=== PATIENT | male | born 1975 | race Caucasian/White ===

== ENCOUNTER 2020-04-02 16:26 | Outpatient (REF) | payer BC, SELFPAY | END 2020-04-02 16:27 | disposition home or self-care (01) | LOC: HO.LNP 16:26 | PROVIDERS: Visit Provider Internal Medicine | DX: Z20.822 Contact with and (suspected) exposure to COVID-19 (principal) | CPT/HCPCS: U0003 ==

== ENCOUNTER 2020-04-09 10:15 | Outpatient (REF) | payer BC, SELFPAY ==
[2020-04-09 11:00] LABS: Influenza A PCR NEGATIVE (Negative); Influenza B PCR NEGATIVE (Negative); Resp Syncy Virus RNA Qual PCR NEGATIVE (Negative); SARS COV2 PCR INHOUSE NEGATIVE (Negative)
== END 2020-04-09 10:16 | disposition home or self-care (01) ==
LOC: HO.LNP 10:15
PROVIDERS: Visit Provider Internal Medicine
DX: Z20.822 Contact with and (suspected) exposure to COVID-19 (principal)
CPT/HCPCS: 0241U

== ENCOUNTER 2020-05-11 14:54 | Outpatient (REF) | payer BC, SELFPAY ==
[2020-05-11 15:40] LABS: Influenza A PCR NEGATIVE (Negative); Influenza B PCR NEGATIVE (Negative); Resp Syncy Virus RNA Qual PCR NEGATIVE (Negative); SARS COV2 PCR INHOUSE NEGATIVE (Negative)
== END 2020-05-11 14:55 | disposition home or self-care (01) ==
LOC: HO.LNP 14:54
PROVIDERS: Visit Provider Internal Medicine
DX: Z86.16 Personal history of COVID-19 (principal)
CPT/HCPCS: 0241U

== ENCOUNTER 2021-03-25 12:14 | Outpatient (REF) | payer BC, SELFPAY ==
[2021-03-25 13:23] LABS: Influenza A PCR NEGATIVE (Negative); Influenza B PCR NEGATIVE (Negative); Resp Syncy Virus RNA Qual PCR NEGATIVE (Negative); SARS COV2 PCR INHOUSE POSITIVE (Negative)
== END 2021-03-25 12:15 | disposition home or self-care (01) ==
LOC: HO.LNP 12:14
PROVIDERS: Visit Provider Internal Medicine
DX: Z20.822 Contact with and (suspected) exposure to COVID-19 (principal); R05.9 Cough, unspecified; J06.9 Acute upper respiratory infection, unspecified
CPT/HCPCS: 0241U

== ENCOUNTER 2021-04-08 13:23 | Outpatient (REF) | payer BC, SELFPAY ==
[2021-04-08 15:11] LABS: COVID-19 Test Negative (Negative)
== END 2021-04-08 13:24 | disposition home or self-care (01) ==
LOC: HO.LAB 13:23
PROVIDERS: Visit Provider Internal Medicine
DX: Z20.822 Contact with and (suspected) exposure to COVID-19 (principal)
CPT/HCPCS: 87635; C9803

== ENCOUNTER 2021-11-18 07:53 | Outpatient (REF) | payer BC, SELFPAY ==
[2021-11-18 10:29] LABS: MANUAL DIFF FLAG NO
[2021-11-18 10:32] LABS: Appearance Urine Clear; Color Urine Yellow; Glucose Urine UA Negative (Negative); Leukocyte Esterase Urine Negative (Negative); Nitrite Urine Negative (Negative); PH 7.5 (5.0-8.0); Urine Blood Negative (Negative); Urine Ketones Negative (Negative); Urine Protein Negative (Neg-Trace)
[2021-11-18 10:40] LABS: Basophils Absolute Auto 0.1 X10*3/uL (0.0-0.2); Basophils Percent Auto 0.8 % (0-2); Eosinophils Absolute Auto 0.3 X10*3/uL (0.0-0.4); Eosinophils Percent Auto 4.4 % (0-4); Hematocrit 46.5 % (42.0-52.0); Hemoglobin 15.3 g/dl (14.0-18.0); Imm Gran Abs Auto 0.01 X10*3/uL (0.00-0.03); Imm Gran Pct Auto 0.2 % (0.0-0.4); Lymphocytes Absolute Auto 2.6 X10*3/uL (1.2-4.9); Lymphocytes Percent Auto 39.5 % (20-40); Mean Corpuscular HGB Conc 32.9 g/dl (31.0-36.0); Mean Corpuscular Volume 88.1 fL (80.0-98.0); Mean Platelet Volume 12.9 fL (9.4-12.4); Monocytes Absolute Auto 0.6 X10*3/uL (0.1-1.2); Neutrophils Percent Auto 46.1 % (45-73); Platelet Count 192 X10*3/uL (160-400); Red Blood Count 5.28 X10*6/uL (4.60-5.80); Red Cell Distribution Width 13.5 % (11.0-16.0); White Blood Count 6.5 X10*3/uL (4.8-10.8)
[2021-11-18 10:48] LABS: Alanine Aminotransferase 53 U/L (0-40); Albumin Level 4.6 g/dL (3.5-5.0); Alkaline Phosphatase 105 U/L (39-117); Anion Gap 15 (12-20); Aspartate Amino Transferase 33 U/L (5-37); Bilirubin Total 0.7 mg/dL (0.0-1.0); Blood Urea Nitrogen 14 mg/dL (9-16); Calcium 9.5 mg/dL (8.4-10.2); Carbon Dioxide 26 mmol/L (22-29); Chloride 105 mmol/L (96-108); Cholesterol 253 mg/dL; Estimated Glomerular Filt Rate > 60; Glucose Fasting 97 mg/dL (60-99); HDL Cholesterol 46 mg/dL; LDL Cholesterol Calculated 174 mg/dl; Potassium 4.5 mmol/L (3.3-5.1); Sodium 141 mmol/L (135-145); Total Protein 7.2 g/dL (6.5-8.0); Triglycerides 165 mg/dL
== END 2021-11-18 07:54 | disposition home or self-care (01) ==
LOC: HO.10HDL 07:53
PROVIDERS: Visit Provider Internal Medicine
DX: Z00.00 Encounter for general adult medical examination without abnormal findings (principal)
CPT/HCPCS: 36415; 80053; 80061; 81003; 85025

== ENCOUNTER 2022-02-24 09:05 | Outpatient (REF) | payer BC, SELFPAY ==
[2022-02-24 11:06] LABS: Alanine Aminotransferase 81 U/L (0-40); Aspartate Amino Transferase 39 U/L (5-37); Cholesterol 144 mg/dL; HDL Cholesterol 39 mg/dL; LDL Cholesterol Calculated 89 mg/dl; Triglycerides 80 mg/dL
== END 2022-02-24 09:06 | disposition home or self-care (01) ==
LOC: HO.10HDL 09:05
PROVIDERS: Visit Provider Internal Medicine
DX: E78.00 Pure hypercholesterolemia, unspecified (principal)
CPT/HCPCS: 36415; 80061; 82550; 84450; 84460

== ENCOUNTER 2022-03-11 10:31 | Outpatient (REF) | payer BC, SELFPAY ==
[2022-03-11 15:00] LABS: Alanine Aminotransferase 51 U/L (0-40); Aspartate Amino Transferase 23 U/L (5-37)
== END 2022-03-11 10:32 | disposition home or self-care (01) ==
LOC: HO.10HDL 10:31
PROVIDERS: Visit Provider Internal Medicine
DX: E78.00 Pure hypercholesterolemia, unspecified (principal); R79.89 Other specified abnormal findings of blood chemistry
CPT/HCPCS: 36415; 82550; 84450; 84460

== ENCOUNTER 2023-05-28 07:29 | Outpatient (REF) | payer BC, SELFPAY ==
[2023-05-28 07:41] LABS: Basophils Absolute Auto 0.1 X10*3/uL (0.0-0.2); Basophils Percent Auto 0.8 % (0-2); Eosinophils Absolute Auto 0.2 X10*3/uL (0.0-0.4); Hematocrit 47.6 % (42.0-52.0); Hemoglobin 15.7 g/dl (14.0-18.0); Imm Gran Abs Auto 0.02 X10*3/uL (0.00-0.03); Imm Gran Pct Auto 0.3 % (0.0-0.4); Lymphocytes Absolute Auto 2.4 X10*3/uL (1.2-4.9); Lymphocytes Percent Auto 40.8 % (20-40); MANUAL DIFF FLAG NO; Mean Platelet Volume 12.2 fL (9.4-12.4); Monocytes Absolute Auto 0.6 X10*3/uL (0.1-1.2); Monocytes Percent Auto 9.2 % (2-11); Neutrophils Absolute Auto 2.7 x10*3/uL (2.0-8.3); Neutrophils Percent Auto 44.9 % (45-73); Platelet Count 189 X10*3/uL (160-400); Red Cell Distribution Width 13.4 % (11.0-16.0)
[2023-05-28 09:03] LABS: Alanine Aminotransferase 43 U/L (0-40); Albumin Level 4.6 g/dL (3.5-5.0); Alkaline Phosphatase 106 U/L (39-117); Anion Gap 12 (12-20); Aspartate Amino Transferase 24 U/L (5-37); Blood Urea Nitrogen 12 mg/dL (9-16); Calcium 9.5 mg/dL (8.4-10.2); Carbon Dioxide 27 mmol/L (22-29); Chloride 105 mmol/L (96-108); Cholesterol 189 mg/dL (<200); Estimated Glomerular Filt Rate > 60; Glucose Random 98 mg/dL (60-115); HDL Cholesterol 41 mg/dL (>40); LDL Cholesterol Calculated 130 mg/dL (<100); Sodium 140 mmol/L (135-145); Total Protein 7.5 g/dL (6.5-8.0); Triglycerides 91 mg/dL (<150)
== END 2023-05-28 07:30 | disposition home or self-care (01) ==
LOC: HO.10HDL 07:29
PROVIDERS: Visit Provider Internal Medicine
DX: R79.89 Other specified abnormal findings of blood chemistry (principal)
CPT/HCPCS: 36415; 80053; 80061; 85025

== ENCOUNTER 2023-07-28 08:33 | Outpatient (REF) | payer BC, SELFPAY ==
--- NOTE | ~2023-07-28 | XR_ITS ---
EXAMINATION: XR HAND, LEFT CLINICAL INFORMATION: Pain in unspecified hand COMPARISON: None available. TECHNIQUE: PA, lateral, and oblique views of the left hand. FINDINGS: The bones are intact. No fracture. Alignment is anatomic. Mild degenerative change of the DIP joint of the middle, ring and little finger. No erosions or soft tissue calcifications. XR/XR hand LT min 3V IMPRESSION: No acute bony abnormality. Mild degenerative change.
== END 2023-07-28 08:34 | disposition home or self-care (01) ==
LOC: HO.HOSX 08:33
PROVIDERS: Visit Provider Physician Assistant
DX: M79.642 Pain in left hand (principal); R20.0 Anesthesia of skin; R20.2 Paresthesia of skin
CPT/HCPCS: 73130

== ENCOUNTER 2023-07-28 10:05 | Outpatient (AMB) | payer BC, SELFPAY ==
--- NOTE | 2023-07-28 10:13 | A.OFFVIS_ITS ---
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 Patient reports tingling occurs on left middle finger and left thumb when extending arm laterally or anteriorly. Reports sx's began about 1.5 years, 5 on 0-10 pain scale. Denies known injuries. 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 Patient was referred to the office by Dr. Delfin Laguerre. Patient reports tingling in the left middle digit and left thumb when extending the upper extremity laterally or anteriorly. He reports symptoms beginning about 1.5 months ago. He reports his pain as a 5/10. He denies any known injury. [facility] Social History (Updated 07/28/23 @ 10:16 by KODI Newton) Alcohol intake: current Alcohol intake frequency: holidays/special occasions only Patient Tobacco Use Status: Never used Tobacco Current occupation: lt hand dominant Review of Systems Const All systems reviewed & are unremarkable except as noted in HPI and below Physical Exam Vital Signs: BMI result Body Mass Index 28.2 Const General: cooperative and no acute distress Orientation/consciousness: patient oriented x3 Resp Effort & Inspection: normal respiratory effort and able to speak in complete sentences Cardio Peripheral pulses: Peripheral pulses 2+ throughout Skin General skin exam: no rashes or lesions noted Neuro General: patient oriented x3 Extrem Other: Left shoulder: Normal to inspection. No ecchymosis, erythema, or edema. Full shoulder ROM in all planes. Negative cross-body reach. Negative empty can. Negative drop arm. Reports tingling in the middle digit and thumb with forward flexion and abduction to 90 degrees, however reports return to normal sensation past 90 degrees. Left hand: Normal to inspection. No ecchymosis, erythema, or edema. Able to perform full finger flexion, extension, abduction, adduction, finger cross, okay sign, and thumbs up without deficit. Able to make a closed fist. Capillary refill is brisk. Radial pulse intact. Assessment & Plan Assessment & Plan (1) Numbness and tingling in left hand: Code(s): R20.0 - Anesthesia of skin; R20.2 - Paresthesia of skin Category: Medical Plan Mr. Hidalgo is a 47-year-old male who presents in the office today for an evaluation of left hand tingling. Patient was referred to the office by Dr. Delfin Laguerre. Patient reports tingling in the left middle digit and left thumb when extending the upper extremity laterally or anteriorly. He reports symptoms beginning about 1.5 months ago. He reports his pain as a 5/10. He denies any known injury. Patient will be referred for an EMG to further evaluate the integrity of the left upper extremity nerves. He will contact the office once the EMG is obtained. In roughly 3-4 weeks he [place] the [place] for [place]. 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 I would like to try and get the EMG obtained prior to his departure. Therefore, a stat EMG order was placed today. Follow up will be after the EMG is obtained, or sooner if needed. Orders: Orders XR hand LT min 3V Today M79.643 - Pain in unspecified hand NE electromyogram (EMG) Today R20.0 - Anesthesia of skin, R20.2 - Paresthesia of skin Patient Instructions: Scribed by Candis Lopez, medical information officer, for Janny Duarte PA-C on 07/28/2023 at 10:17 am, EST. Coding Level of Care Code New Pt Level 4 (78453) Diagnoses Numbness and tingling in left hand R20.0; R20.2
[2023-07-28 10:18] VITALS: BMI 28.2
== END 2023-07-28 10:29 | disposition home or self-care (01) ==
PROVIDERS: PCP Internal Medicine; Visit Provider Physician Assistant
DX: R20.0 Anesthesia of skin (principal); R20.2 Paresthesia of skin
CPT/HCPCS: 99203

== ENCOUNTER 2023-08-07 08:36 | Outpatient (REF) | payer BC, SELFPAY ==
--- NOTE | 2023-08-07 08:39 | EMG_ITS ---
Chief complaint: Tingling/numbness on left 3rd digit but only when he stretches out left arm. Denies nighttime symptoms. Reason for referral: Evaluate for brachial plexopathy Referred by: Janny AUGUSTIN Procedure done: Left upper extremity NCS/EMG Precautions and/or limitations: None The limb temperature was monitored continuously and remained between 32-36 degrees C during the performance of the NCS. Nerve Conduction Studies Anti Sensory Summary Table ?Stim Site NR Onset (ms) Norm Onset (ms) Peak (ms) Norm Peak (ms) O-P Amp (?V) Norm O-P Amp Site1 Site2 Delta-0 (ms) Dist (cm) Alcon (m/s) Norm Alcon (m/s) Left Lat Ante Brach Cutan Anti Sensory (Lat Forearm) Lat Biceps ? 0.4 0.5 0.1 Lat Biceps Lat Forearm 0.4 0.0 Left Med Ante Brach Cutan Anti Sensory (Med Forearm) Elbow ? 0.4 0.5 2.1 Elbow Med Forearm 0.4 0.0 Left Median Anti Sensory (2nd Digit) Wrist ? 2.3 3.1 <3.6 50.7 >10 Wrist 2nd Digit 2.3 14.0 61 Left Radial Anti Sensory (Thumb) Forearm ? 1.8 2.4 <3.1 23.1 Forearm Thumb 1.8 0.0 Left Ulnar Anti Sensory (5th Digit) Wrist ? 2.4 3.1 <3.7 40.5 >15.0 Wrist 5th Digit 2.4 14.0 58 Motor Summary Table ?Stim Site NR Onset (ms) Norm Onset (ms) O-P Amp (mV) Norm O-P Amp iAmp (mV) Amp (1st) (%) Site1 Site2 Delta-0 (ms) Dist (cm) Alcon (m/s) Norm Alcon (m/s) Left Median Motor (Abd Poll Brev) Wrist ? 3.6 <3.9 12.6 >4.5 15.4 100.0 Elbow Wrist 3.9 21.0 54 >45 Elbow ? 7.5 12.3 14.7 97.6 Left Ulnar Motor (Abd Dig Minimi) Wrist ? 3.0 <3.0 7.8 >5 10.8 100.0 B Elbow Wrist 3.3 20.0 61 >45 B Elbow ? 6.3 8.2 11.6 105.1 A Elbow B Elbow 1.6 10.0 62 >45 A Elbow ? 7.9 7.6 11.1 97.4 EMG ?Side Muscle Nerve Root Ins Act Fibs Psw Amp Dur Poly Recrt Int Pat Comment Left 1stDorInt Ulnar C8-T1 Nml Nml Nml Nml Nml 0 Nml Complete Left FlexCarRad Median C6-7 Nml Nml Nml Nml Nml 0 Nml Complete Left Biceps Musculocut C5-6 Nml Nml Nml Nml Nml 0 Nml Complete Left Triceps Radial C6-7-8 Nml Nml Nml Nml Nml 0 Nml Complete Left Deltoid Axillary C5-6 Nml Nml Nml Nml Nml 0 Nml Complete Paraspinal EMG ?Side Muscle Nerve Root Ins Act Fibs Psw Comment Left Cervical Upper Rami Nml Nml Nml Left Cervical Mid Rami Nml Nml Nml Left Cervical Lower Rami Nml Nml Nml FINDINGS: All motor and sensory nerves tested showed normal latencies, amplitudes and conduction velocities. Concentric needle EMG was performed in selected muscles of the left upper extremity and cervical paraspinals. Study did not reveal signs of electric abnormalities as shown in the table below. IMPRESSION: 1. This is a normal study. 2. There is no electrodiagnostic evidence for median neuropathy, ulnar neuropathy, brachial plexopathy, or cervical radiculopathy. Thank you for your kind referral. Jacquie Amador MD, SIGRID Board Certified, [place] Board of Physical Medicine and Rehabilitation (ABPMR) Board Certified, [place] Board of Electrodiagnostic Medicine (ABEM) [place] [id number] [facility]
== END 2023-08-07 08:37 | disposition home or self-care (01) ==
LOC: HO.NEURO 08:36
PROVIDERS: PCP Internal Medicine; Visit Provider Physician Assistant
DX: R20.0 Anesthesia of skin (principal); R20.2 Paresthesia of skin
CPT/HCPCS: 95886; 95910

== ENCOUNTER → 2023-08-07 08:39 | Outpatient (BNV) | payer BC, SELFPAY | PROVIDERS: PCP Internal Medicine; Visit Provider Physical Medicine & Rehabilitation | DX: R20.0 Anesthesia of skin (principal); R20.2 Paresthesia of skin | CPT/HCPCS: 95886; 95910 ==

== ENCOUNTER 2024-03-08 09:34 | Day surgery (SDC) | payer BC, SELFPAY ==
[2024-03-04 12:04] VITALS: BMI 29.1
--- NOTE | 2024-03-07 09:43 | P.CONAN_ITS ---
HPI - Anesthesia Eval Consult details Narrative: 48yo M for Colonoscopy PMFSH Active Problems Active Problems: All Active Problems Numbness and tingling in left hand (Acute) Past Medical History Medical History Hyperlipidemia Surgical History Surgical History Hx of eye surgery Social History Social History Are you a primary healthcare network consultant to a significant other at home: No Do you presently have visiting nurse or other home services: No Alcohol intake: current Alcohol intake frequency: holidays/special occasions only Patient Tobacco Use Status: Never used Tobacco Use of substances other than those prescribed or required for medical reasons: No Have you been hit, kicked, punched, or otherwise hurt by someone within the past year? If so, by whom?: No Advance Directives: No Advance Directives Information Provided: Yes Recently lost weight without trying: No Nutrition Risks: No Nutritional Risk Poor oral hygiene: No Current occupation: lt hand dominant Meds Allergies Allergy/AdvReac Type Severity Reaction Status Date / Time No Known Allergies Allergy Verified 03/08/24 09:52 Home Medications ?Medication ?Instructions ?Recorded ?Confirmed ?Last Taken ?Type ezetimibe 10 mg tablet 10 mg PO DAILY 03/04/24 03/04/24 Unknown History Exam Height,Weight and Vital Signs: Height 5 ft 7 in Weight 84.368 kg Assessment and Plan Assessment Anesthesia Assessment: Chart Reviewed
--- NOTE | 2024-03-08 09:52 | HO.ANESPROP2 ---
[facility] Active Problems Active Problems: All Active Problems Numbness and tingling in left hand (Acute) Past Medical History Medical History Hyperlipidemia Functional capacity: independent ambulation Family History Family history of problems with anesthesia: No Surgical History Surgical History Hx of eye surgery History of Problems with Anesthesia: No Social History Social History Alcohol intake: current Alcohol intake frequency: holidays/special occasions only Patient Tobacco Use Status: Never used Tobacco Advance Directives: No Advance Directives Information Provided: Yes Current occupation: lt hand dominant Meds Allergies Allergy/AdvReac Type Severity Reaction Status Date / Time No Known Allergies Allergy Verified 03/08/24 09:52 Active Medications: Current Medications Lactated Ringer's (Lr) 1,000 mls @ 100 mls/hr IVCONT .Q10H [facility] Home Medications ?Medication ?Instructions ?Recorded ?Confirmed ?Last Taken ?Type ezetimibe 10 mg tablet 10 mg PO DAILY 03/04/24 03/04/24 Unknown History Exam Height,Weight and Vital Signs: Height 5 ft 7 in Weight 84.368 kg Airway Mallampati Class: II TM Dist: >3cm Neck ROM: Full Heart: RRR Lungs: CTA Assessment and Plan Assessment Anesthesia Assessment: Anesthesia Plan Discussed and Chart Reviewed Final Anesthetic Review Family History of Problems with Anesthesia: No History of Problems with Anesthesia: No NPO: Yes ASA Class: II Final Preanesthetic Review: Meds/Allgs Chart Reviewed, Consent Obtained/Reviewed and Anes Risks/Benef Reviewed Patient Risk: Low Procedure Risk: Low Anesthetic Plan Anesthetic Plan: MAC: Disposition: Standard PACU
[2024-03-08 09:54] VITALS: BP 141/89; PULSE 85; RESP 12; TEMP 37.2; O2SAT 97; BMI 26.9
[2024-03-08] MEDS: Lactated Ringers 1,000 ML 100 ML IVCONT (10:14)
--- NOTE | 2024-03-08 10:16 | MHC.SHP ---
Pre-Procedural Eval Section A - 24 Hr Update-Section A only Date of Service: 03/08/24 The patient is an INPATIENT: No Changes since office visit: No Cold of Flu in the past 2 weeks, No New Medical Problems, No Changes in Medication and No Patient answered all questions The patient has been examined within 24 hours of the surgical procedure. The History & Physical has been completed within 30 days and I have reviewed it.: Yes Section B - Complete if H&P > 30 days Chief Complaint: screening Allergies: Allergies Allergy/AdvReac Type Severity Reaction Status Date / Time No Known Allergies Allergy Verified 03/08/24 09:52 Plan I have reviewed the history and physical and performed a pertinent physical examination on my patient. No changes have occurred unless specified. Time Spent With Patient Time: Total time managing care of this patient today ____ minutes.
[2024-03-08 10:47] VITALS: BP 119/69; PULSE 79; RESP 16; TEMP 36.6; O2SAT 95
--- NOTE | 2024-03-08 10:58 | OP_ITS ---
DATE OF SERVICE: 03/08/2024 SURGEON: Alex Negrete MD INDICATIONS: Colon cancer screening. PREOPERATIVE DIAGNOSIS: POSTOPERATIVE DIAGNOSIS: PROCEDURE PERFORMED: Colonoscopy to the terminal ileum. ESTIMATED BLOOD LOSS: COMPLICATIONS: ANESTHESIA: Medications, monitored anesthesia care. ASSISTANTS: SPECIMENS: DESCRIPTION OF PROCEDURE: History and physical was performed. The risks and benefits of the procedure were explained to the patient. Informed consent was obtained. The patient was placed in the left lateral decubitus position. A digital rectal exam was performed and was found to be normal. The Olympus pediatric video colonoscope was introduced into the rectum and advanced to the cecum. The cecum was identified by transillumination, palpation, and identification of ileocecal valve. Examination was performed. The scope was removed. He tolerated the procedure well and was taken to recovery area in stable condition. FINDINGS: The terminal ileum was normal. The visualized colonic mucosa was within normal limits without evidence of masses or ulcers. No polyps were identified. There was moderate diverticulosis involving the sigmoid with some inverted diverticula, but no definite polyps. The quality of the prep was good. Retroflexed examination showed moderate-sized internal hemorrhoids and some hypertrophic anal papillae. IMPRESSION: Normal colonoscopy. RECOMMENDATION: 1. Follow up as needed. 2. Repeat colonoscopy is recommended in 10 years for average-risk individuals. MD SCOTT Sawyer/RAMILA / [phone]
[2024-03-08 11:02] VITALS: BP 123/80; PULSE 83; RESP 16; O2SAT 96
[2024-03-08 11:17] VITALS: BP 137/88; PULSE 79; RESP 16; TEMP 36.6; O2SAT 97
--- NOTE | 2024-03-08 11:17 | HO.POSTANES ---
Post Anesthesia Evaluation Post Anesthesia Evaluation Date of Service: 03/08/24 Vital Signs: Vital Signs Temp Pulse Resp BP Pulse Ox O2 Del Method 03/08/24 11:14 97.9 F 79 16 137/88 97 Room Air 03/08/24 11:02 83 16 123/80 96 Room Air 03/08/24 10:47 97.9 F 79 16 119/69 95 Room Air 03/08/24 09:54 99.0 F 85 12 141/89 H 97 Room Air Anesthesia: Monitored Mental Status: Awake Pain Control: Satisfactory Nausea/Vomiting: None Hydration: Adequate Anesthesia-Related Issues: No Anes. Related Issues
== END 2024-03-08 11:48 | disposition home or self-care (01) ==
PROVIDERS: PCP Internal Medicine; Visit Provider Internal Medicine Gastroenterology
PROC: 0DJD8ZZ Inspection of Lower Intestinal Tract, Via Natural or Artificial Opening Endoscopic (ICD-10-PCS; CPT 45378; principal; 2024-03-08 11:00)
DX: Z12.11 Encounter for screening for malignant neoplasm of colon (principal); K57.30 Diverticulosis of large intestine without perforation or abscess without bleeding; K64.8 Other hemorrhoids; K62.89 Other specified diseases of anus and rectum; E78.5 Hyperlipidemia, unspecified; Z79.899 Other long term (current) drug therapy
CPT/HCPCS: 45378; J2003; J2704

== ENCOUNTER 2024-11-07 10:10 | Outpatient (AMB) | payer BC, SELFPAY ==
--- OUTSIDE RECORDS SUMMARY | 2023-12-28 05:20 | XMS_ITS ---
Author Organization [facility] Address [address] [place] [id number] Care Team Providers Care Allergist/Pediatric Pulmonologist Name Role Phone Carlotta (RETIRED) Delfin BRADEN Primary Care Provide r Alex Vásquez Jr [phone] REASON FOR VISIT screening colonoscopy Encounters Encounter Location Date Provider Diagnosis [facility] [address] [place] [id number] 12/28/2023 Alex Negrete Jr Plan Of Treatment No Information Progress Notes * MAUREEN LANGE JrDOB:[birth year] (48 yo M)Acc No.[id number]:12/28/2023 Progress Notes Patient: MAUREEN HARE Provider: Amada Negrete MD :1975 A ge:48 Y S ex:Male Date:12/28/2023 Address: [place] , [id number] Pcp:Delfin Laguerre (RETIRED )MD Subjective: * Chief Complaints: * 1 . Screening colonoscopy. * Medical History: Objective: * Vitals: Assessment: Plan: * Treatment: * * The named appointment provid er may or may not be the originator of this progress note, and it is not deemed complete until electronically signed by the appointment provider. Sign off status: Pending * Provider: Amada Negrete MD Date: 1 Generated for Toneyi ng/Faxing/eTransmitting on: 0 11/07/2024 11:07 AM EDT
--- NOTE | 2024-11-07 10:18 | MHC.PC.OV ---
Vital Signs 11/07/24 10:20 Height 5 ft 7 in Weight 87.543 kg BMI 30.2 BP 150/102 H Respiration 16 Pulse 92 Pulse Source Pulse Oximeter Temp 97.7 F Pulse Oximetry (%) 94 Oxygen Delivery Method Room Air Intake Visit Reasons: Routine / Dr Laguerre Slip Box Changer Required: No Accompanied by: Spouse Allergies No Known Allergies Allergy (Verified 11/07/24 10:20) Medication List - Last Reconciled 11/07/24 by DEMETRIA Garcia testosterone 140 mg subcut .Once Weekly HPI HPI Comments History of Present Illness Details 48-year-old male with history of hyperlipidemia and hypogonadism presents to the office today for management of chronic conditions and to establish care. He is here today with his , arsh. Labs recently completed by [employer] labs, scan to chart Hyperlipidemia-last LDL 82, total cholesterol 180, LDL 77. Following lab work, patient did discontinue his Zetia. He has poor tolerance of statins due to myalgias. He does try to follow healthy diet Hypogonadism-he is currently using 140 mg of subcu testosterone prescribed by [email or web address], online service. Tolerates medication well last total testosterone 196, free testosterone 5.2. Obesity class 1-BMI 30.2. He reports he has been following a healthy diet, overall consuming whole foods. His cooks most of his meals. He does admit that he is not exercising as much as he should. He did join a gym but is looking to meet with a clinical trainer to help with compliance. Health maintenance: Due for screening colonoscopy Concerns: Reports feeling a testicular mass on the right side, present for years. Has not grown in size and is not painful. He did previously see [facility] but has not been seen in several years. Denies any abnormal urinary symptoms, penile discharge, rash. No scrotal edema or swelling ROS: General: No fevers, malaise, unintentional weight loss Cardiovascular: No chest pain, palpitations, or leg edema Respiratory: No shortness of breath, wheezing, cough GI: No abdominal pain, nausea, vomiting, diarrhea, constipation, melena, hematochezia : No dysuria, hematuria, increased urinary frequency, decreased urinary output. See hpi MSK: No myalgia, back pain Neuro: No headaches, weakness, paresthesias Skin: No rashes or lesions EXAM: Constitutional - Awake and Alert, No apparent distress Eyes - PERRL Cardiovascular - S1S2, RRR, No edema Respiratory - Normal lung expansion, Normal respiratory effort, No respiratory distress, CTA bilaterally GI - nontender to palpation, no guarding or rebound. Positive bowel sounds throughout, nondistended - refuses manager of maintenance for sensitive exam. No scrotal swelling or edema. Bilateral testicular atrophy with subcentimeter palpable mass the inferior aspect of the testicles bilaterally, possibly consistent with varicocele. Penis is normal in appearance, no drainage. No masses/bulge Extremities - no calf tenderness bilaterally, no swelling Skin - Warm/Dry Neurological - Alert & oriented x3 Psychological - Appropriate affect PFSH Medical History (Updated 11/07/24 @ 10:46 by DEMETRIA Garcia) Testicular mass Hypogonadism in male Hyperlipidemia Surgical History Hx of eye surgery Social History Are you a primary youth career specialist to a significant other at home: No Do you presently have visiting nurse or other home services: No Alcohol intake: current Alcohol intake frequency: holidays/special occasions only Patient Tobacco Use Status: Never used Tobacco Current occupation: lt hand dominant Questionnaire PHQ-9 Over the last 2 weeks, how often have you been bothered by any of the following problems? 1. Little interest or pleasure in doing things: not at all 2. Feeling down, depressed, or hopeless: not at all 3. Trouble falling or staying asleep, or sleeping too much: several days 4. Feeling tired or having little energy: not at all 5. Poor appetite or overeating: several days 6. Feeling bad about yourself - or that you are a failure or have let yourself or your family down: not at all 7. Trouble concentrating on things, such as reading the newspaper or watching television: not at all 8. Moving or speaking so slowly that other people could have noticed. Or the opposite - being so fidgety or restless that you have been moving around a lot more than usual: not at all 9. Thoughts that you would be better off or of hurting yourself in some way: not at all Total score: 2 Source: Developed by Drs. Barron Patricia, Annette Shin, Arcadio Marquez and colleagues, with an educational dina from [employer]. Thrive Questionnaire Date Thrive assessed: 11/07/24 I am a: Patient What is your living situation today?: I have a steady place to live Within the past 12 months, did the food you bought not last and you didn't have the money to get more?: Never true Within the past 12 months, did you worry whether your food would run out before you got money to buy more?: Never true Do you have trouble paying for medicines?: No Do you have trouble getting transportation to medical appointments?: No Do you have trouble paying your heating and electricity bill?: No Do you have trouble taking care of your child, family member or friend?: No Do you have trouble with day-to-day activities such as bathing, preparing meals, shopping, managing finances, etc.?: No Are you currently unemployed and looking for a job?: No Are you interested in more education?: No Please select the resources that you would like help with: None THRIVE Score: 0 VERN-7 AMB Questionnaire VERN-7 Date VERN - 7 assessed: 11/07/24 Feeling nervous, anxious, or on edge: 0 = Not at all Not being able to stop or control worryin = Not at all Worrying too much about different things: 0 = Not at all Trouble relaxin = Not at all Being so restless that it is hard to sit still: 0 = Not at all Becoming easily annoyed or irritable: 0 = Not at all Feeling afraid as if something awful might happen: 0 = Not at all Total VERN-7 score (0-4 normal; 5-9 mild; 10-14 moderate; 15-21 severe): 0 Source: Developed by Drs. Barron Patricia, Annette Shin, Arcadio Marquez and colleagues, with an educational dina from [employer]. Physical exam (Primary Care) Vital Signs: Last Vital Signs Temp 97.7 F 11/07/24 10:20 Pulse 92 11/07/24 10:20 Resp 16 11/07/24 10:20 BP 150/102 H 11/07/24 10:20 Pulse Ox 94 11/07/24 10:20 Oxygen Delivery Method Room Air 11/07/24 10:20 BMI result Body Mass Index 30.2 Tobacco/Smoking Status: Tobacco use Status Patient Tobacco Use Status Never used Tobacco 11/07/24 10:18 PHQ-9: PHQ-9 Score PHQ-9: Total score 2 11/07/24 10:30 Thrive Assessment: Date of Thrive Assessment Date Thrive assessed 11/07/24 11/07/24 10:29 Coding Level of Care Code New Pt Level 4 (88991) Complex EM visit Add On G2211 Diagnoses Hypogonadism in male E29.1 Testicular mass N50.89 Hyperlipidemia E78.5 Assessment & Plan Assessment & Plan (1) Hypogonadism in male: Code(s): E29.1 - Testicular hypofunction Category: Medical Plan: Continue testosterone. Refill provided (2) Testicular mass: Code(s): N50.89 - Other specified disorders of the male genital organs Category: Medical Plan: Referred for u/s. Suspect varicocele. Low suspicion for malignancy. No evidence of torsion (3) Hyperlipidemia: Code(s): E78.5 - Hyperlipidemia, unspecified Category: Medical Plan: Controlled. Can remain off zetia as cholesterol levels are very reassuring. Will recheck lipid panel at next visit and ASCVD risk score will be calculated for further recommendation Plan Follow-up in 6 months with labs completed prior to visit. Continue with healthy diet and exercise as discussed in office. Recommend weightlifting to help with testosterone levels. He is referred for screening colonoscopy Orders: Orders Complete Blood Count Auto Diff 6 Months E29.1 - Testicular hypofunction, N50.89 - Other specified disorders of the male genital organs Lipid Panel 6 Months E29.1 - Testicular hypofunction, N50.89 - Other specified disorders of the male genital organs US scrotum doppler Today E29.1 - Testicular hypofunction, N50.89 - Other specified disorders of the male genital organs Testosterone, Free/Total 6 Months E29.1 - Testicular hypofunction, N50.89 - Other specified disorders of the male genital organs Basic Metabolic Panel 6 Months E29.1 - Testicular hypofunction, N50.89 - Other specified disorders of the male genital organs Liver Panel 6 Months E29.1 - Testicular hypofunction, N50.89 - Other specified disorders of the male genital organs Vitamin D 25-OH Total 6 Months E29.1 - Testicular hypofunction, N50.89 - Other specified disorders of the male genital organs Referrals Gastroenterology Referral Z12.11 - Encounter for screening for malignant neoplasm of colon
[2024-11-07 10:20] VITALS: BP 150/102; PULSE 92; RESP 16; TEMP 36.5; O2SAT 94; BMI 30.2
--- OUTSIDE RECORDS SUMMARY | 2024-11-07 11:07 | XMS_ITS | Patient Health Record ---
Author Organization [facility] Address [address] [place] [address] Care Team Providers Care Vending Machine Attendant Name Role Phone Delfin Laguerre MD Primary Care Provider Isis boothe Maryanne Kathryn Unavailable [phone] Reason For Referral No Information Medications Medication SIG (Take, Route, Frequency, Duration) Notes Start Date End Date Status Ammonium Lactate 12 % 1 application to a ffected area Externally Twice a day; Duration: 30 days 11/30/2012 Not-[place] reynaga Social History Alcohol Screen Question Answer Notes Did you have a drink contain ing alcohol in the past year? Yes How often did you have a dri nk containing alcohol in the past year? 2 to 4 times a month (2 points) Points 2 Interpretation Negative Problems No Known Problems Plan Of Treatment Pending Test Test Name Order Date X ray : Foot, left 3V 11/30/2012 X ray : Foot, right 3V 11/30/2012 Insurance Providers Payer Name Payer Address Payer Phone Subscriber Number Group Number Insured Name Patient Relationship to Insured Coverage Start Date Coverage End Date [facility] [employer] [address] [place] [address] [phone] [id number] Edi Hidalgo Jr Self - patient is the insured Medical (General) History Medical History History ICD Code Chicken pox Surgical History Surgery Date(Month/Year) eye surgery LT & RT 08/2015
== END 2024-11-07 10:56 | disposition home or self-care (01) ==
LOC: HO.HMCHD 10:11
PROVIDERS: PCP Internal Medicine; Visit Provider Physician Assistant
DX: E29.1 Testicular hypofunction (principal); N50.89 Other specified disorders of the male genital organs

== ENCOUNTER 2024-12-29 14:24 | Outpatient (REF) | payer BC, SELFPAY ==
--- NOTE | ~2024-12-29 | US_ITS ---
CLINICAL HISTORY: E29.1 - Testicular hypofunction US Scrotum with Doppler Comparison: None provided Findings: Right testicle normal echotexture, 3.3 x 2.8 x 1.3 cm. Left testicle normal echotexture, 3.2 x 1.4 x 2.3 cm. Normal color flow and arterial/venous spectral tracing of both testicles. Normal epididymides. No varicoceles. Small hydroceles. IMPRESSION: No acute findings or evidence of torsion. This document has been electronically signed by: Jesús Cardenas MD on 12/30/2024 09:06:11
== END 2024-12-29 14:25 | disposition home or self-care (01) ==
LOC: HO.HMGCX 14:24
PROVIDERS: PCP Physician Assistant; Visit Provider Physician Assistant
DX: E29.1 Testicular hypofunction (principal); N50.89 Other specified disorders of the male genital organs
CPT/HCPCS: 76870

== ENCOUNTER → 2024-12-29 14:28 | Outpatient (BNV) | payer BC, SELFPAY | PROVIDERS: PCP Physician Assistant; Visit Provider Specialist | DX: E29.1 Testicular hypofunction (principal) | CPT/HCPCS: 76870 ==